=== PATIENT | female | born 1945 | race Two or more races ===

== ENCOUNTER → 2016-06-22 | Day surgery (SDC) | payer MEDICARE, OTHER ==
--- NOTE | 2016-06-21 20:57 | Pre-op HX & Phy Repo 2 SIG ---
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 BRIEF NOTE: This is the first [facility] admission for this patient who is a very nice 70-year-old lady who underwent initially surgery to repair a macular hole in February. Things went well with what appeared to be closure of the hole, but subsequent to this, she developed a cataract with what appeared to be dislocation of the nuclear material through a posterior capsular opening. She has had issues with pressure and an ultrasound was suspected of having a total retinal detachment. She is admitted for repair. PAST OCULAR HISTORY: Otherwise benign. The right eye has never had surgery. PAST MEDICAL HISTORY: Benign as well. She has on multiple topical medications as well as Diamox for elevated pressure. ALLERGIES: She has no known allergies. PHYSICAL EXAMINATION: Best vision at the time of admission was 20/25 in the right eye and light perception with projection in the left. Pressures were 14 and 34. The anterior segment of the right was benign with only mild nuclear sclerosis. On the left, there was trace flare in the anterior chamber. A mild pterygium was seen nasally. Significant cortical remnants were seen in the place of the lens with an intact anterior capsule, but iridodonesis suggestive of loss of the bulk of the lens material. Posterior segment could only vaguely be seen. An ultrasound done on the left eye showed a large portion of the lens nucleus dislocated inferiorly. There was what appeared to be a posterior vitreous detachment with thickened posterior hyaloid, but none of this extended to the optic nerve. There was a question of whether the retina was attached or not. General physical examination will be done by Dr. Prabhakar. ASSESSMENT: Possible total retinal detachment, left eye with dislocated lens and secondary glaucoma. PLAN: The plan is to perform pars plana vitrectomy with placement of an anterior chamber lens. The lens fragments will be moved from posteriorly and retinal detachment will be repaired either with gas or silicone oil if found. The risks and benefits of surgery gone over with the patient with potential infection, hemorrhage, inability to repair the retina, pain and discomfort, and remote possibility of loss of the eye. The risk of anesthesia was also discussed. This the patient understands and consents to the surgery, which will be performed on tomorrow morning. Desmond Hart M.D. DR: LORE JOB#: [id number] CC:
[~2016-06-22] VITALS: Ht 154.9 cm; Wt 57.6 kg
[2016-06-22] VITALS (9 sets, daily range): BP systolic 143–181; BP diastolic 59–82
[~2016-06-22] MED LIST: ACETAZOLAMIDE250 MG ORAL; Acetylcholine Injection (OR) ONE; Atropine Sulfate 3.5gm Oint ONE; BSS 15ml BTL ONE; BSS 500ml btl ONE; Bupivacaine 0.75% 30ml vial INJ ONE; CALCIUM + D3 E1 EACH PO; Carbachol 0.01% Op Soln 1.5ml vial ONE; Dexamethasone 4mg/ml vial ONE; DiphenhydrAMINE 50mg/ml Inj IVP PRN; DiphenhydrAMINE 50mg/ml Inj ONE; EPINEPHrine 1mg/1ml Amp ONE; FOSAMAX70 MG ORAL; Kenalog-10 5ml Inj ONE; Kenalog-40 1ml Vial ONE; LR 1000ml 1,000 ML IVLG SCH; LR 1000ml ONE; Labetalol 5mg/ml 20ml vial IV PRN; Lidocaine 1% MPF 10mg/ml 5ml ONE; Lidocaine 2% MPF 5ml Vial INJ ONE; Maxitrol Opth Oint 3.5gm ONE; Midazolam 2mg/2ml Inj ONE; NS Irrig 1000ml ONE; Norco 5mg/325mg tab ORAL PRN; Povidone-Iodine 5% opth solution ONE; Pred Forte 1% Opth Susp 1ml LEFT EYE ONE; Propofol 10mg/ml 20ml IV ONE; SIMVASTATIN40 MG ORAL; Sodium Hyaluronate 10 mg/ml 0.85ml ONE; Sterile Water Irrig 1000ml IRRIG ONE; Tetracaine 0.5% Opth Soln ONE; fentaNYL 100 mcg/2 mL IV ONE
[2016-06-22] MEDS: Flurbiprofen 0.03% Opth Sol 2.5ml LEFT EYE SCH ×3 (08:32→08:51)
[2016-06-22] MEDS: Gatifloxacin Opth Solution 0.5% LEFT EYE SCH ×3 (08:32→08:51)
[2016-06-22] MEDS: Phenylephrine 2.5% Op Soln LEFT EYE SCH ×3 (08:33→08:51)
[2016-06-22] MEDS: Cyclopentolate 1% Opth Sol LEFT EYE SCH ×3 (08:33→08:51)
--- NOTE | 2016-06-22 08:36 | Pre-Procedure Note/Attestation ---
Pre-Procedure Note/Attestation Complete Prior to Procedure Planned Procedure: left Procedure Narrative: PPV, removal of dislocated lens, repair of retinal detachment, insertion of IOL L eye Indications for Procedure Pre-Operative Diagnosis: Dislocated crystalline lens, phacolytic glaucoma, possible total RD OS Attestation I attest that I discussed the nature of the procedure; its benefits; risks and complications; and alternatives (and the risks and benefits of such alternatives ), prior to the procedure, with the patient (or the patient's legal community service representative). I attest that, if there was a reasonable possibility of needing a blood transfusion, the patient (or the patient's legal community service representative) was given the [place] Department of Health Services standardized written summary, pursuant to the Rehan Walker Blood Safety Act ([place] Health and Safety Code # 1645, as amended). I attest that I re-evaluated the patient just prior to the surgery and that there has been no change in the patient's H&P, except as documented below: ASHLEE GUIDRY Jun 22, 2016 08:36
[2016-06-22 08:38] LABS: MEAN CORPUSCULAR HEMOGLOBIN 33.8 PG (27.0-31.0); MEAN CORPUSCULAR HGB CONC 35.4 G/DL (32.0-36.0); MEAN CORPUSCULAR VOLUME 96 FL (80-99); RED BLOOD COUNT 4.06 M/UL (4.20-5.40); RED CELL DISTRIBUTION WIDTH 11.7 % (11.6-14.8); WHITE BLOOD COUNT 5.1 K/UL (4.8-10.8)
[2016-06-22 08:39] LABS: BASOPHILS % (AUTO) 0.8 % (0.0-2.0); EOSINOPHILS % (AUTO) 2.2 % (0.0-3.0); LYMPHOCYTES % (AUTO) 35.6 % (20.0-45.0); MEAN PLATELET VOLUME 8.2 FL (6.5-10.1); MONOCYTES % (AUTO) 10.6 % (1.0-10.0); NEUTROPHILS % (AUTO) 50.8 % (45.0-75.0); PLATELET COUNT 213 K/UL (150-450)
[2016-06-22 08:47] LABS: ANION GAP 16 (5-15); CARBON DIOXIDE 18 mEQ/L (20-30); CHLORIDE 108 mEQ/L (98-107); CREATININE 0.6 mg/dL (0.5-0.9); HEMOLYSIS 22; POTASSIUM 4.2 mEQ/L (3.4-4.9); SODIUM 142 mEQ/L (135-145)
--- NOTE | 2016-06-22 09:58 | Anethesia Preoperative Eval ---
Anesthesia Pre-op PMH/ROS General Date of Evaluation: Jun 22, 2016 Anesthesiologist: Mt ASA Score: ASA 2 Mallampati Score Class I : Soft palate, uvula, fauces, pillars visible Class II: Soft palate, uvula, fauces visible Class III: Soft palate, base of uvula visible Class IV: Only hard plate visible Mallampati Classification: Class II Surgeon: Hailey Diagnosis: Retained lens fragments left eye Surgical Procedure: Left eye vitrectomy Anesthesia History: none Family History: no anesthesia problems Allergies: Coded Allergies: MUSHROOM (Verified Adverse Reaction, Severe, N/V, 06/21/16) Medications: see eMAR Past Medical History Cardiovascular: Reports: HTN, Denies: CAD, [place], arrhythmia, other, valve dz Pulmonary: Reports: asthma, Denies: COPD, ANDREEA, other Gastrointestinal/Genitourinary: Denies: CRI, ESRD, GERD, other Neurologic/Psychiatric: Denies: CVA, TIA, dementia, depression/anxiety, other Endocrine: Denies: DM, hypothyroidism, other, steroids HEENT: Denies: [place] (L), [place] (R), cataract (L), cataract (R), glaucoma, other Hematology/Immune: Denies: DVT, anemia, bleeding disorder, other Musculoskeletal/Integumentary: Reports: OA, Denies: DDD, DJD, RA, edema, other PSxH Narrative: left eye vitrectomy, UHR, ANGELA Anesthesia Pre-op Phys. Exam Physician Exam Last Vital Signs Date Time Temp Pulse Resp B/P Pulse Ox O2 Delivery O2 Flow Rate FiO2 06/22/16 09:00 53 18 165/73 100 Room Air 06/22/16 08:39 98.0 Constitutional: NAD Cardiovascular: RRR Respiratory: CTA Airway Exam Mallampati Score: Class II MO: full ROM: full Anesthesia Pre-op A/P Labs Hematology Test 06/22/16 08:15 White Blood Count 5.1 K/UL (4.8-10.8) Red Blood Count 4.06 M/UL (4.20-5.40) L Hemoglobin 13.7 G/DL (12.0-16.0) Hematocrit 38.8 % (37.0-47.0) Mean Corpuscular Volume 96 FL (80-99) Mean Corpuscular Hemoglobin 33.8 PG (27.0-31.0) H Mean Corpuscular Hemoglobin Concent 35.4 G/DL (32.0-36.0) Red Cell Distribution Width 11.7 % (11.6-14.8) Platelet Count 213 K/UL (150-450) Mean Platelet Volume 8.2 FL (6.5-10.1) Neutrophils (%) (Auto) 50.8 % (45.0-75.0) Lymphocytes (%) (Auto) 35.6 % (20.0-45.0) Monocytes (%) (Auto) 10.6 % (1.0-10.0) H Eosinophils (%) (Auto) 2.2 % (0.0-3.0) Basophils (%) (Auto) 0.8 % (0.0-2.0) Chemistry Test 06/22/16 08:15 Sodium Level 142 mEQ/L (135-145) Potassium Level 4.2 mEQ/L (3.4-4.9) Chloride Level 108 mEQ/L (98-107) H Carbon Dioxide Level 18 mEQ/L (20-30) L Anion Gap 16 (5-15) H Blood Urea Nitrogen 19 mg/dL (7-23) Creatinine 0.6 mg/dL (0.5-0.9) Estimat Glomerular Filtration Rate mL/min (>60) Glucose Level 88 mg/dL (74-106) Calcium Level 9.0 mg/dL (8.6-10.2) Studies Pre-op Studies: EKG - sr Risk Assessment & Plan Assessment: ASA II Plan: GA Status Change Before Surgery: No Pre-Antibiotics Drug: N/A ALEXIS PEÑA M.D. Jun 22, 2016 09:58
--- NOTE | 2016-06-22 11:08 | Immediate Post-Op Evaluation ---
Immediate Post-Op Evalulation Immediate Post-Op Evalulation Procedure: Left eye vitrectomy Date of Evaluation: Jun 22, 2016 Time of Evaluation: 13:04 IV Fluids: 700 Blood Products: 0 Estimated Blood Loss: min Urinary Output: 0 Blood Pressure Systolic: 143 Blood Pressure Diastolic: 61 Pulse Rate: 55 Respiratory Rate: 16 O2 Sat by Pulse Oximetry: 100 Temperature (Fahrenheit): 97 Pain Score (1-10): 0 Nausea: No Vomiting: No Complications 0 Patient Status: awake, reacts, patent, none Hydration Status: adequate Drug: N/A ALEXIS PEÑA M.D. Jun 22, 2016 11:08
--- NOTE | 2016-06-22 11:09 | 48 Hour Post Anesthesia Eval ---
Post Anesthesia Evaluation Procedure: Left eye vitrectomy Date of Evaluation: Jun 22, 2016 Blood Pressure Systolic: 142 0: 64 Pulse Rate: 52 Respiratory Rate: 16 O2 Sat by Pulse Oximetry: 100 Airway: patent Nausea: No Vomiting: No Pain Intensity: 0 Hydration Status: adequate Cardiopulmonary Status: at baseline Mental Status/LOC: patient returned to baseline Post-Anesthesia Complications: 0 Follow-up care needed: ready to discharge ALEXIS PEÑA M.D. Jun 22, 2016 11:09
--- NOTE | 2016-06-23 16:52 | Brief Operative Note ---
Immediate Post Operative Note Operative Note Chief Complaint: Blurred vision Pre-op Diagnosis: Dislocated crystalline lens, phacolytic glaucoma, possible total RD OS Procedure: PPV, fragmentation of dislocated lens, Endolaser 2221 spots, placement of AC lens, peripheral iridectomy, gas-fluid exchange L eye Post-op Diagnosis: Retinal detachment, dislocated crystalline lens, phacolytic glaucoma with inflammation L eye Surgeon: gia Anesthesiologist: Alfonso Anesthesia: general Specimen: none Complications: none Condition: stable Estimated Blood Loss: none Drains: none Implant(s) used?: Yes - 16 diopter AC IOL ASHLEE GUIDRY Jun 23, 2016 16:52
--- NOTE | 2016-06-24 00:18 | Operative Note - Dictated ---
DATE OF OPERATION: 06/22/2016 PREOPERATIVE DIAGNOSIS: Dislocated crystalline lens with phacolytic glaucomatous and retinal detachment left eye. PROCEDURES PERFORMED: 1. Pars plana vitrectomy. 2. Fragmentation of dislocated lens. 3. Insertion of anterior chamber lens. 4. Placement of a peripheral iridotomy. 5. Endolaser. 6. Gas fluid exchange, left eye. SURGEON: Desmond Hart M.D. STUDIO HAND: None. ANESTHESIA: LMA, general. ANESTHESIOLOGIST: Eleanor Hamilton M.D. JUSTIFICATION FOR SURGERY: This 70-year-old lady who previously had surgery for a macular hole, developed a retinal detachment, glaucoma, and dislocated lens. BRIEF NOTE: The patient was brought to the operative room, placed on operating room table in supine position. After a time-out was performed and agreed upon by the staff, general LMA anesthesia was induced by Dr. Hamilton. Retrobulbar and Van Lint blocks were then given in the standard way to the left eye. The eye was prepped and draped in normal manner. A lid speculum was inserted to the left eye. A 160 degree superior peritomy was then cut with relaxation incisions at 930 and 230. Using a 23-gauge trocar system, cannulas were placed all except infranasal quadrant. Infusion secured inferotemporally. Vitrectomy was begun posterior to the iris plane. It was noted that the posterior capsule and most of the lens body was missing so cortical debris was removed followed by removal of the anterior capsule. Visualization was much set for now and posteriorly it was found to be a large nucleus surrounded by cortical material, which was lodged just over the optic nerve. In addition, there was a sizable nasal retinal detachment with two small horseshoe tears at the 2 o'clock position and a large horseshoe rip at 3 followed by an additional small tear at 530. These areas were noted. The eye was subjected to a vitrectomy shaving vitreous over the tears and also peripherally leaving a small vitreous skirt. The vitreous that was adherent to the lens was also removed. The superonasal wound was then enlarged to 20-gauge size and the 20-gauge fragmatome was introduced into the eye and the large remnant of lens material fragmented and removed. It was decided at this point to repair the retinal detachment with laser and intraocular gas. Before this was done, it was elected to place the previously selected anterior chamber lens. The wounds were plugged and a groove was made in the posterior surgical limbus going roughly 6.5 mm. Using the keratome, the anterior chamber was entered. The wound was extended with a keratome to either edge. A lens glide was then inserted into the inferior angle and the distance was measured at 11.5 mm. A 12.5 mm 16 diopter anterior chamber lens was chosen and after instilling [place] in the anterior chamber, the lens was inserted properly into the inferior angle and then the lips of the wound were elevated and was placed superiorly. The lens was noted to fixate nicely. A 10-0 nylon sutures, interrupted were then used to close the superior wound. All knots were rotated posteriorly. Using the vitreous cutter, a peripheral iridotomy was made at the 10 o'clock position. Attention was then carried posteriorly where an air-fluid exchange was performed with drainage through the larger posterior break at 9 o'clock. With the retina now sufficiently flatten, endolaser was brought to the eye and a power of 0.3 sibley duration 0.2 seconds. A total of 2221 lesions were applied surrounding the large retinal breaks and going inferiorly where the suspicious areas were noted. A gas exchange was then performed using roughly an 18% mixture of C3F8. With the eye being left roughly 80% fill with gas and 20% fluid to avoid possibility of a wet fold, the instruments were removed and the remaining wounds closed with 8-0 Vicryl suture. Conjunctiva and Tenon's capsule were then pulled up to secure 6-0 plain catgut. Subconjunctival Decadron and gentamicin were then injected and Maxitrol and atropine ointments were instilled. The patient was gently rolled to the face-down position after a smooth recovery from general anesthesia and she was taken to the recovery room in excellent condition. Desmond Hart M.D. DR: RENE JOB#: [id number] CC:
--- NOTE | 2016-06-26 16:34 | Cardiology Report ---
APPROVED REPORT EKG Measurement Heart [id number] Sinus bradycardia Otherwise normal ECG
--- NOTE | 2016-06-28 23:58 | Pre-op HX & Phy Repo 2 SIG ---
DATE OF ADMISSION: 06/22/2016 NOTE: POOR AUDIO PRESURGICAL INTERNAL MEDICINE HISTORY AND PHYSICAL REASON FOR EVALUATION: I was asked by Dr. Desmond Hart to see this 70-year-old, Somali-speaking female, who is going for elective surgery of the left eye. The patient has retained foreign material fragments, left eye. The patient was examined. Chart was reviewed. Information obtained through the daughter by the bedside. PAST MEDICAL HISTORY/REVIEW OF SYSTEMS: Remarkable for osteoporosis and history of shingles. No history of chest pain, palpitation, or heart attack. No diabetes mellitus. No stroke or seizures. The patient . No thyroid problem. No anemia. No renal failure. The patient has a history of glaucoma. PAST SURGICAL HISTORY: Hysterectomy, hernia repair, and also cataract surgery. FAMILY HISTORY: Father . Sister has hypertension. ALLERGIES: CURRENT MEDICATIONS: Include alendronate, calcium, vitamin D supplement, Diamox, Tylenol, and simvastatin. SOCIAL HISTORY: The patient smoked for approximately 20 years and stopped three years ago. Smoked moderately 3-4 cigarettes a day. Alcohol socially. No street drugs. PHYSICAL EXAMINATION: GENERAL: A well-developed, well-nourished female in her 70s. VITAL SIGNS: Blood pressure 181/76, which she had before surgery 161/70, temperature 98 degrees Fahrenheit, pulse 51 per minute, regular O2 saturation 99% on room air. SKIN: Dry and warm. LUNGS: Clear. LYMPH NODES: Not enlarged. HEENT: Head, normocephalic. Ears, clear. Eyes, full description per Dr. Desmond Hart. Mouth, dentures. NECK: Supple. No jugular vein distention. Carotids +2. Trachea midline. CHEST: No deformity or asymmetry. EXTREMITIES: No rales or rhonchi. HEART: Sinus bradycardia. No murmur. No S3 or S4. ABDOMEN: Soft and benign. No rebound. No palpable mass. EXTREMITIES: No edema. No varicose veins. No calf tenderness. GENITOURINARY: No dysuria. CVA nontender. NEUROLOGIC: No tremor. No nystagmus. No asymmetry. LABORATORY AND DIAGNOSTIC DATA: ECG sinus bradycardia 49 per minute. The patient did not eat or drink from last night. Lab work pending. IMPRESSION: 1. Retained foreign material fragment, left eye. 2. Osteoporosis. 3. Hypertension, untreated. 4. Glaucoma. 5. History of herpes zoster. 6. Hyperlipidemia. PLAN: Pars plana vitrectomy with removal of ___ fragment left eye per Dr. Desmond Hart. CONCLUSION: The patient has hypertension evaluated by primary care physician. The patient did not eat or drink from last night. The patient's ECG showed sinus bradycardia of 49, asymptomatic, as outpatient. The patient's condition optimized for surgery. Thank you very much, Dr. Hart, for privilege to participate in the presurgical care of this patient. Smith Prabhakar M.D. DR: REANNA JOB#: [id number] CC:
== END | disposition home or self-care (01) ==
LOC: SUR 07:23
DX: H33.022 Retinal detachment with multiple breaks, left eye (principal); H40.52X0 Glaucoma secondary to other eye disorders, left eye, stage unspecified; H27.132 Posterior dislocation of lens, left eye; H25.22 Age-related cataract, morgagnian type, left eye
CPT/HCPCS: 36415; 66999; 67108; 80048; 85025; 93005; J0171; J1100; J2250; J2704; J3010; J3301; J3470; J3490; J7120; V2632; 94003; 94150

== ENCOUNTER 2016-10-24 05:31 | Day surgery (SDC) | payer MEDICARE, OTHER ==
--- NOTE | 2016-10-21 17:45 | Pre-op HX & Phy Repo 2 SIG ---
DATE OF ADMISSION: 10/24/2016 POSTOPERATIVE DIAGNOSIS: Recurrent retinal detachment, left eye. BRIEF NOTE: This is the second [facility] admission for this patient who is a 71-year-old lady, who has had problems with the left eye. She was treated for a macular hole by another surgeon in late 2015. Subsequent to this, she was found to have a dislocated lens and elevated pressure as well as a retinal detachment. She was admitted to [facility] on 06/22/2016 where a pars plana vitrectomy was performed with fragmentation and removal of the dislocated lens, repair of the retinal detachment, and insertion of an anterior chamber lens. She did well until the late development of fibrosis and traction around the retinal hole, which has reopened slightly with an inferior retinal detachment. She was admitted for repair of this lesion. PAST MEDICAL HISTORY: Benign. She is on multiple topical medications for her eyes. ALLERGIES: She has no known allergies. PHYSICAL EXAMINATION: Best vision at the time of admission was 20/70 in the right eye and 20/200 in the left with pressures of 15 and 14. The anterior segment on the right shows a small pterygium plus 2+ nuclear cataract. On the left, an anterior chamber lens was seen in good position. The pupil is round. Fundus examination of the right eye appears normal. The left eye shows some degree of glaucomatous atrophy. There is a closed macular hole. An open retinal break is seen at the 4 o'clock position with associated traction. The inferior retina is detached, but dramatically remains on. General physical examination will be updated by Dr. Prabhakar. ASSESSMENT: Recurrent retinal detachment, left eye, with preretinal fibrosis. PLAN: The plan is to perform a repeat pars plana vitrectomy with localized scleral buckle on the left eye. Gas-fluid exchange or possibly silicone oil will be injected. The risks and benefits of surgery have been gone over with the patient with the potential for infection, hemorrhage, glaucoma, recurrent detachment, and the possibility of loss of the eye. The risk of anesthesia was discussed. The patient understands and consents to the surgery, which will be performed on Monday. Desmond Hart M.D. DR: LORE JOB#: [id number] CC:
[2016-10-24] VITALS (10 sets, daily range): BP systolic 147–189; BP diastolic 66–84
[~2016-10-24] VITALS: Ht 152.4 cm; Wt 57.6 kg
[~2016-10-24 05:31] MED LIST changes: -Acetylcholine Injection (OR) ONE; -Atropine Sulfate 3.5gm Oint ONE; -BSS 15ml BTL ONE; -BSS 500ml btl ONE; -Bupivacaine 0.75% 30ml vial INJ ONE; -Carbachol 0.01% Op Soln 1.5ml vial ONE; -Dexamethasone 4mg/ml vial ONE; -DiphenhydrAMINE 50mg/ml Inj IVP PRN; -DiphenhydrAMINE 50mg/ml Inj ONE; -EPINEPHrine 1mg/1ml Amp ONE; -Kenalog-10 5ml Inj ONE; -Kenalog-40 1ml Vial ONE; -LR 1000ml 1,000 ML IVLG SCH; -LR 1000ml ONE; -Labetalol 5mg/ml 20ml vial IV PRN; -Lidocaine 1% MPF 10mg/ml 5ml ONE; -Lidocaine 2% MPF 5ml Vial INJ ONE; -Maxitrol Opth Oint 3.5gm ONE; -Midazolam 2mg/2ml Inj ONE; -NS Irrig 1000ml ONE; -Norco 5mg/325mg tab ORAL PRN; -Povidone-Iodine 5% opth solution ONE; -Pred Forte 1% Opth Susp 1ml LEFT EYE ONE; -Propofol 10mg/ml 20ml IV ONE; -Sodium Hyaluronate 10 mg/ml 0.85ml ONE; -Sterile Water Irrig 1000ml IRRIG ONE; -Tetracaine 0.5% Opth Soln ONE; -fentaNYL 100 mcg/2 mL IV ONE
[2016-10-24] MEDS ORDERED: Flurbiprofen 0.03% Opth Sol 2.5ml ONE (05:33)
[2016-10-24] MEDS ORDERED: Phenylephrine 2.5% Op Soln ONE (05:33)
[2016-10-24] MEDS ORDERED: Gatifloxacin Opth Solution 0.5% ONE (05:33)
[2016-10-24] MEDS ORDERED: Cyclopentolate 1% Opth Sol ONE (05:33)
[2016-10-24] MEDS ORDERED: Pred Forte 1% Opth Susp 1ml LEFT EYE ONE (06:00)
[2016-10-24] MEDS: Cyclopentolate 1% Opth Sol LEFT EYE SCH ×3 (06:07→06:30)
[2016-10-24] MEDS: Gatifloxacin Opth Solution 0.5% LEFT EYE SCH ×3 (06:08→06:29)
[2016-10-24] MEDS: Phenylephrine 2.5% Op Soln LEFT EYE SCH ×3 (06:08→06:30)
[2016-10-24] MEDS: Flurbiprofen 0.03% Opth Sol 2.5ml LEFT EYE SCH ×3 (06:08→06:29)
[2016-10-24 06:11] LABS: BASOPHILS % (AUTO) 0.9 % (0.0-2.0); LYMPHOCYTES % (AUTO) 36.9 % (20.0-45.0); MEAN CORPUSCULAR HEMOGLOBIN 33.4 PG (27.0-31.0); MEAN CORPUSCULAR VOLUME 96 FL (80-99); MEAN PLATELET VOLUME 8.9 FL (6.5-10.1); MONOCYTES % (AUTO) 10.4 % (1.0-10.0); NEUTROPHILS % (AUTO) 48.9 % (45.0-75.0); PLATELET COUNT 187 K/UL (150-450); RED BLOOD COUNT 4.19 M/UL (4.20-5.40); RED CELL DISTRIBUTION WIDTH 11.5 % (11.6-14.8)
[2016-10-24 06:22] LABS: ANION GAP 17 (5-15); CALCIUM 9.1 mg/dL (8.6-10.2); CARBON DIOXIDE 22 mEQ/L (20-30); CHLORIDE 102 mEQ/L (98-107); CREATININE 0.7 mg/dL (0.5-0.9); HEMOLYSIS 169; POTASSIUM 5.1 mEQ/L (3.4-4.9); SODIUM 141 mEQ/L (135-145)
--- NOTE | 2016-10-24 06:26 | Pre-Procedure Note/Attestation ---
Pre-Procedure Note/Attestation Complete Prior to Procedure Planned Procedure: left Procedure Narrative: PPV, membrane peel, scleral buckle, endolaser, gas fluid exchange, possible silicone oil injection L eye Indications for Procedure Pre-Operative Diagnosis: Recurrent retinal detachment L eye Attestation I attest that I discussed the nature of the procedure; its benefits; risks and complications; and alternatives (and the risks and benefits of such alternatives ), prior to the procedure, with the patient (or the patient's legal field representative/health education). I attest that, if there was a reasonable possibility of needing a blood transfusion, the patient (or the patient's legal field representative/health education) was given the [place] Department of Health Services standardized written summary, pursuant to the Rehan Walker Blood Safety Act ([place] Health and Safety Code # 1645, as amended). I attest that I re-evaluated the patient just prior to the surgery and that there has been no change in the patient's H&P, except as documented below: ASHLEE GUIDRY Oct 24, 2016 06:26
[2016-10-24] MEDS ORDERED: Norco 5mg/325mg tab ORAL PRN (06:30)
[2016-10-24] MEDS ORDERED: FISH OIL300 M1 PO (06:48)
[2016-10-24] MEDS ORDERED: BSS 500ml btl ONE (06:55)
[2016-10-24] MEDS ORDERED: Dexamethasone 4mg/ml vial ONE ×3 (06:56→07:30)
[2016-10-24] MEDS ORDERED: Kenalog-40 1ml Vial ONE (06:56)
[2016-10-24] MEDS ORDERED: Maxitrol Opth Oint 3.5gm ONE (06:56)
[2016-10-24] MEDS ORDERED: Tetracaine 0.5% Opth Soln ONE (06:56)
[2016-10-24] MEDS ORDERED: EPINEPHrine 1mg/1ml Amp ONE (06:57)
[2016-10-24] MEDS ORDERED: Lidocaine 2% MPF 5ml Vial INJ ONE (06:57)
[2016-10-24] MEDS ORDERED: Povidone-Iodine 5% opth solution ONE (06:57)
[2016-10-24] MEDS ORDERED: Kenalog-10 5ml Inj ONE (06:57)
[2016-10-24] MEDS ORDERED: Bupivacaine 0.75% 30ml vial INJ ONE (06:58)
[2016-10-24] MEDS ORDERED: Triamcinolone 40mg/ml PF Vial ONE (06:58)
[2016-10-24] MEDS ORDERED: BSS 15ml BTL ONE ×2 (06:58→09:01)
[2016-10-24] MEDS ORDERED: Sodium Hyaluronate 10 mg/ml 0.85ml ONE (06:58)
[2016-10-24] MEDS ORDERED: NS Irrig 1000ml ONE (07:30)
[2016-10-24] MEDS ORDERED: fentaNYL 100 mcg/2 mL IV ONE ×2 (07:30)
[2016-10-24] MEDS ORDERED: Lidocaine 1% MPF 10mg/ml 5ml ONE ×2 (07:30)
[2016-10-24] MEDS ORDERED: Sterile Water Irrig 1000ml IRRIG ONE (07:30)
[2016-10-24] MEDS ORDERED: Propofol 10mg/ml 20ml IV ONE ×2 (07:30)
[2016-10-24] MEDS ORDERED: LR 1000ml 1,000 ML IVLG SCH (08:05)
--- NOTE | 2016-10-24 08:05 | Anethesia Preoperative Eval ---
Anesthesia Pre-op PMH/ROS General Date of Evaluation: Oct 24, 2016 Anesthesiologist: Mt ASA Score: ASA 2 Mallampati Score Class I : Soft palate, uvula, fauces, pillars visible Class II: Soft palate, uvula, fauces visible Class III: Soft palate, base of uvula visible Class IV: Only hard plate visible Mallampati Classification: Class II Surgeon: Hailey Diagnosis: Recurrent left retinal detachment Surgical Procedure: Left eye vitrectomy and scleral buckle Anesthesia History: none Family History: no anesthesia problems Allergies: Coded Allergies: MUSHROOM (Verified Adverse Reaction, Severe, N/V, 06/21/16) Medications: see eMAR Past Medical History Cardiovascular: Reports: HTN, other - HLD, Denies: CAD, [place], arrhythmia, valve dz Pulmonary: Denies: COPD, ANDREEA, asthma, other Gastrointestinal/Genitourinary: Denies: CRI, ESRD, GERD, other Neurologic/Psychiatric: Denies: CVA, TIA, dementia, depression/anxiety, other Endocrine: Denies: DM, hypothyroidism, other, steroids HEENT: Denies: [place] (L), [place] (R), cataract (L), cataract (R), glaucoma, other Hematology/Immune: Denies: DVT, anemia, bleeding disorder, other Musculoskeletal/Integumentary: Denies: DDD, DJD, OA, RA, edema, other PSxH Narrative: Hysterectomy, multiple left eye sx Anesthesia Pre-op Phys. Exam Physician Exam Last Vital Signs Date Time Temp Pulse Resp B/P Pulse Ox O2 Delivery O2 Flow Rate FiO2 10/24/16 06:10 97.9 54 18 189/82 99 Room Air Constitutional: NAD Cardiovascular: RRR Respiratory: CTA Airway Exam Mallampati Score: Class II MO: limited ROM: full Teeth: missing, intact Anesthesia Pre-op A/P Labs Hematology Test 10/24/16 06:00 White Blood Count 6.0 K/UL (4.8-10.8) Red Blood Count 4.19 M/UL (4.20-5.40) L Hemoglobin 14.0 G/DL (12.0-16.0) Hematocrit 40.1 % (37.0-47.0) Mean Corpuscular Volume 96 FL (80-99) Mean Corpuscular Hemoglobin 33.4 PG (27.0-31.0) H Mean Corpuscular Hemoglobin Concent 35.0 G/DL (32.0-36.0) Red Cell Distribution Width 11.5 % (11.6-14.8) L Platelet Count 187 K/UL (150-450) Mean Platelet Volume 8.9 FL (6.5-10.1) Neutrophils (%) (Auto) 48.9 % (45.0-75.0) Lymphocytes (%) (Auto) 36.9 % (20.0-45.0) Monocytes (%) (Auto) 10.4 % (1.0-10.0) H Eosinophils (%) (Auto) 3.0 % (0.0-3.0) Basophils (%) (Auto) 0.9 % (0.0-2.0) Chemistry Test 10/24/16 06:00 Sodium Level 141 mEQ/L (135-145) Potassium Level 5.1 mEQ/L (3.4-4.9) H Chloride Level 102 mEQ/L (98-107) Carbon Dioxide Level 22 mEQ/L (20-30) Anion Gap 17 (5-15) H Blood Urea Nitrogen 15 mg/dL (7-23) Creatinine 0.7 mg/dL (0.5-0.9) Estimat Glomerular Filtration Rate mL/min (>60) Glucose Level 102 mg/dL (74-106) Calcium Level 9.1 mg/dL (8.6-10.2) Studies Pre-op Studies: EKG - sb Risk Assessment & Plan Assessment: ASA II Plan: GA Status Change Before Surgery: No Pre-Antibiotics Drug: N/A ALEXIS PEÑA M.D. Oct 24, 2016 08:05
[2016-10-24] MEDS ORDERED: Neosporin Oph Soln 5ml Btl ONE (08:11)
[2016-10-24] MEDS ORDERED: DiphenhydrAMINE 50mg/ml Inj IVP PRN (08:15)
[2016-10-24] MEDS ORDERED: Metoclopramide 10mg/2ml Inj IVP PRN (08:15)
[2016-10-24] MEDS ORDERED: fentaNYL 100 mcg/2 mL IV PRN (08:15)
--- NOTE | 2016-10-24 10:16 | Immediate Post-Op Evaluation ---
Immediate Post-Op Evalulation Immediate Post-Op Evalulation Procedure: Left eye vitrectomy and scleral buckle Date of Evaluation: Oct 24, 2016 Time of Evaluation: 10:16 IV Fluids: 600 Blood Products: 0 Estimated Blood Loss: min Urinary Output: 0 Blood Pressure Systolic: 148 Blood Pressure Diastolic: 66 Pulse Rate: 57 Respiratory Rate: 16 O2 Sat by Pulse Oximetry: 100 Temperature (Fahrenheit): 97 Pain Score (1-10): 0 Nausea: No Vomiting: No Complications 0 Patient Status: awake, reacts, patent, none Hydration Status: adequate Drug: N/a ALEXIS PEÑA M.D. Oct 24, 2016 10:16
--- NOTE | 2016-10-24 10:20 | Brief Operative Note ---
Immediate Post Operative Note Operative Note Chief Complaint: Shadow in vision L eye Pre-op Diagnosis: Recurrent retinal detachment L eye Procedure: PPV, scleral buckle (240. 287. and 70), Endolaser 1009 spots, posterior retinotomy, inferior iridotomy, silicone oil injection L eye. Post-op Diagnosis: same as pre-op Surgeon: gia Anesthesiologist: anika Anesthesia: general Specimen: none Complications: none Condition: stable Estimated Blood Loss: none Drains: none Implant(s) used?: Yes - 240 band, 287 tire, 70 sleeve......1000 [place] silicone oil ASHLEE GUIDRY Oct 24, 2016 10:20
--- NOTE | 2016-10-24 22:15 | Operative Note - Dictated ---
DATE OF OPERATION: 10/24/2016 PREOPERATIVE DIAGNOSIS: Recurrent retinal detachment, left eye. POSTOPERATIVE DIAGNOSIS: Recurrent retinal detachment, left eye. PROCEDURES PERFORMED: 1. Pars plana vitrectomy. 2. Scleral buckle. 3. Endolaser. 4. Posterior retinotomy. 5. Inferior iridotomy. 6. Silicone oil fill, left eye. SURGEON: Desmond Hart M.D. LOGGING SUPERVISOR: None. ANESTHESIA: LMA general. ANESTHESIOLOGIST: Dr. Hamilton. JUSTIFICATION FOR SURGERY: This 71-year-old lady underwent macular hole surgery late last year which was complicated by dislocation of the lens and the vitreous hemorrhage. She underwent a vitrectomy in June which involved placing an anterior chamber lens and removing the fragment of lens material as well as treating a small inferior retinal detachment. In the last month, she developed traction which elevated the previous holes and is readmitted for definitive repair. BRIEF NOTE: The patient was brought to the operating room, placed on OR table in supine position. After a time-out was performed and agreed upon by the staff, general LMA anesthesia was induced by Dr. Hamilton. Retrobulbar and Van Lint blocks were given in the standard way to limit the need for postoperative anesthetic. She was then prepped and draped in the normal manner. A lid speculum inserted into the left eye. A 360-degree peritomy was then cut with relaxation incisions at 3 and 9 o'clock positions. The muscles were then isolated and turn on white and black ties. The quadrants were explored and found to be without scleral thinning. Because an inferior detachment had been noted with a open break at the 4:30 position below the horizontal meridian it was elected to place a scleral buckle. Sutures using 5-0 nylon in a mattress fashion were placed in all 4 quadrants with the inferior quadrants having the sutures placed 7 mm apart and superiorly 3 mm. A 240 band was selected and brought around the eye and secured with a 70 sleeve in the supranasal quadrant. A segment of 287 tire was then chosen to accommodate the inferior detachment. This was placed beneath the inferior mattress sutures and beneath the inferior rectus muscle. The knots were then tied and rotated posteriorly with the buckle being loosely drawn up. Preparation was then made for a vitrectomy. Using a 23-gauge trocar system, cannulas were placed in all except infranasal quadrant. Infusion secured inferotemporally. Vitrectomy was begun by removing some degree of peripheral vitreous skirt leaving the smaller. The retina was noted to be essentially mobile. Forceps were used to remove a small amount of preretinal tissue inferonasally. When this was accomplished, it was elected to place a posterior retinotomy for drainage. A site was selected just roughly one disc diameter from the optic nerve slightly inferior and nasally and the cautery was placed here as well as marking the break at the 4:30 position. Through the posterior retinotomy, fluid was drained as an air-fluid exchange was performed totally flattening the retina on the buckle. With the retina now flat the Endolaser was brought into the eye and a power of 0.3 sibley duration 0.2 seconds, a total of 1009 lesions were applied to surround the retinal break with at least 4 rows of laser and also to surround the posterior retinotomy. Additional laser armando were placed on the crest of the buckle inferiorly. A total of 1009 lesions were applied. At this juncture, the vitrector was used to cut an inferior iridotomy at the 6 o'clock position to allow for circulation of fluid behind the silicone oil. At this point, the silicone oil fill was achieved while evacuating air from just posterior to the lens implant. The eye was filled up to the plane of the iris and the pressure left low. Once the oil had been placed, the two superior cannulas were removed and each sclerotomy was closed with 8-0 Vicryl suture. The infusion cannula was also removed and suture of 8-0 Vicryl placed. The ends of the buckle were drawn slightly to leave a moderate buckling affect and edges were trimmed. All knots were rotated posteriorly. Conjunctiva and Tenon's capsule were pulled up and secured with 6-0 plain catgut, interrupted at 6, 3, and 9. Subconjunctival Decadron and gentamicin were injected inferiorly and prednisolone, atropine, and gatifloxacin drops were instilled. Maxitrol ointment was then instilled and the eye was patched and shielded. The patient was extubated smoothly and taken to recovery in excellent condition. There were no complications. Desmond Hart, M.D. DR: Ralph JOB#: [id number] CC: Desmond Hart M.D.; Fax#: [phone]
--- NOTE | 2016-10-25 07:25 | Cardiology Report ---
APPROVED REPORT EKG Measurement Heart [id number] NM [id number] Sinus bradycardia Otherwise normal ECG
== END 2016-10-24 13:30 | disposition home or self-care (01) ==
LOC: SUR 05:31
DX: H33.012 Retinal detachment with single break, left eye (principal); I10 Essential (primary) hypertension; E78.5 Hyperlipidemia, unspecified; J45.909 Unspecified asthma, uncomplicated; R00.1 Bradycardia, unspecified; Z91.018 Allergy to other foods; Z90.710 Acquired absence of both cervix and uterus
CPT/HCPCS: 36415; 67108; 80048; 85025; 93005; J0171; J1100; J2405; J2704; J3010; J3301; J3470; J3490; 94003; 94150; J3300

== ENCOUNTER 2017-05-08 06:01 | Day surgery (SDC) | payer MEDICARE, OTHER ==
--- NOTE | 2017-05-04 21:16 | Pre-op HX & Phy Repo 2 SIG ---
DATE OF ADMISSION: 05/08/2017 DATE OF SURGERY: 05/08/2017. PREOPERATIVE DIAGNOSIS: Retained silicone oil, left eye, status post vitrectomy. BRIEF NOTE: This is one of several admissions for this patient, who is a very nice 71-year-old lady with a history of retinal issues in the left eye. She previously developed a retinal detachment on that side, which has been repaired, but complicated by development of PDR and recurrent elevation of the retina. She has had two prior procedures, but with the last procedure has developed flattening of the retina behind the silicone oil and was admitted for oil removal. PAST MEDICAL HISTORY: Remarkable for osteoporosis. She takes alendronate for this. She is on topical medications for inflammation and elevated pressure in the left eye. OCULAR EXAMINATION: Best vision at the time of the visit was 20/40 in the right eye and counting fingers in the left with pressures of 24 and 26, subsequently treated. The anterior segment on the right was quiet with a moderate nuclear cataract. The left showed an anterior chamber lens. The anterior segment was otherwise quiet with all wounds closed. 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 On the left, there was a 0.6 cup. The scleral buckle was seen with an 85% silicone oil filled. The area of retinal elevation inferotemporally was well surrounded by laser and attached. General physical examination was done by the patient's general physician. ASSESSMENT: Retained silicone oil, left eye. PLAN: The plan is to perform a pars plana vitrectomy with silicone oil removal and additional laser as needed. The risks and benefits of surgery have been gone over with the patient including potential for infection, hemorrhage, glaucoma, remote possibility of loss of the eye, or recurrent detachment. The risk of anesthesia was discussed. The patient understands and consents to the surgery, which will be performed on Monday. Desmond Hart M.D. DR: GAETANO JOB#: [id number] CC:
[2017-05-08] VITALS (11 sets, daily range): BP systolic 110–126; BP diastolic 44–70
[~2017-05-08] VITALS: Ht 152.4 cm; Wt 56.7 kg
[~2017-05-08 06:01] MED LIST changes: +Cyclopentolate 1% Opth Sol 2ml ONE; +FISH OIL300 M1 PO; +Flurbiprofen 0.03% Opth Sol 2.5ml ONE; +Phenylephrine 2.5% Op 2ml Soln ONE; +Pred Forte 1% Opth Susp 1ml LEFT EYE SCH; +Vigamox Opth Soln 3ml ONE; +[UNRECOGNIZED DRUG - OTHER] PO
--- NOTE | 2017-05-08 06:23 | Pre-Procedure Note/Attestation ---
Pre-Procedure Note/Attestation Complete Prior to Procedure Planned Procedure: left Procedure Narrative: PPV, oil removal, endolaser Left eye Indications for Procedure Pre-Operative Diagnosis: Retained silicone oil left eye Attestation I attest that I discussed the nature of the procedure; its benefits; risks and complications; and alternatives (and the risks and benefits of such alternatives ), prior to the procedure, with the patient (or the patient's legal telemarketing sales representative). I attest that, if there was a reasonable possibility of needing a blood transfusion, the patient (or the patient's legal telemarketing sales representative) was given the [facility] standardized written summary, pursuant to the Rehan Wyano Blood Safety Act ([place] Health and Safety Code # 1645, as amended). I attest that I re-evaluated the patient just prior to the surgery and that there has been no change in the patient's H&P, except as documented below: ASHLEE GUIDRY May 08, 2017 06:23
[2017-05-08] MEDS: Phenylephrine 2.5% Op 2ml Soln LEFT EYE SCH ×3 (06:49→07:08)
[2017-05-08] MEDS: Cyclopentolate 1% Opth Sol 2ml LEFT EYE SCH ×3 (06:49→07:07)
[2017-05-08] MEDS: Vigamox Opth Soln 3ml LEFT EYE SCH ×3 (06:49→07:07)
[2017-05-08] MEDS: Flurbiprofen 0.03% Opth Sol 2.5ml LEFT EYE SCH ×3 (06:50→07:07)
[2017-05-08] MEDS ORDERED: BSS 500ml btl ONE (07:10)
[2017-05-08] MEDS ORDERED: Kenalog-40 1ml Vial ONE (07:10)
[2017-05-08] MEDS ORDERED: Kenalog-10 5ml Inj ONE (07:11)
[2017-05-08] MEDS ORDERED: Povidone-Iodine 5% opth solution ONE (07:11)
[2017-05-08] MEDS ORDERED: Dexamethasone 4mg/ml vial ONE (07:11)
[2017-05-08] MEDS ORDERED: Tetracaine 0.5% Opth 4ml Soln ONE (07:11)
[2017-05-08] MEDS ORDERED: Maxitrol Opth Oint 3.5gm ONE (07:11)
[2017-05-08] MEDS ORDERED: BSS 15ml BTL ONE (07:12)
[2017-05-08] MEDS ORDERED: EPINEPHrine 1mg/1ml Amp ONE (07:12)
[2017-05-08] MEDS ORDERED: Bupivacaine 0.75% 30ml vial INJ ONE (07:12)
[2017-05-08] MEDS ORDERED: Sodium Hyaluronate 10 mg/ml 0.85ml ONE (07:12)
[2017-05-08] MEDS ORDERED: Lidocaine 2% MPF 5ml Vial INJ ONE (07:12)
--- NOTE | 2017-05-08 07:21 | Anethesia Preoperative Eval ---
Anesthesia Pre-op PMH/ROS General Date of Evaluation: May 08, 2017 Anesthesiologist: Mt ASA Score: ASA 2 Mallampati Score Class I : Soft palate, uvula, fauces, pillars visible Class II: Soft palate, uvula, fauces visible Class III: Soft palate, base of uvula visible Class IV: Only hard plate visible Mallampati Classification: Class II Surgeon: Hailey Diagnosis: Left eye retinal detachment Surgical Procedure: Left eye vitrectomy Anesthesia History: none Family History: no anesthesia problems Allergies: Coded Allergies: MUSHROOM (Verified Adverse Reaction, Severe, N/V, 06/21/16) Medications: see eMAR Past Medical History Cardiovascular: Reports: HTN, other - HLD, Denies: CAD, GA, valve dz, arrhythmia Pulmonary: Denies: asthma, COPD, ANDREEA, other Gastrointestinal/Genitourinary: Denies: GERD, CRI, ESRD, other Neurologic/Psychiatric: Denies: dementia, CVA, depression/anxiety, TIA, other Endocrine: Denies: DM, hypothyroidism, steroids, other HEENT: Denies: cataract (L), cataract (R), glaucoma, OMAHA (L), OMAHA (R), other Hematology/Immune: Denies: anemia, DVT, bleeding disorder, other Musculoskeletal/Integumentary: Denies: OA, RA, DJD, DDD, edema, other PSxH Narrative: hysterectomy, uhr, left eye vitrectomy Anesthesia Pre-op Phys. Exam Physician Exam Last Vital Signs Date Time Temp Pulse Resp B/P (MAP) Pulse Ox O2 Delivery O2 Flow Rate FiO2 05/08/17 07:15 97.2 45 18 110/56 99 Room Air Constitutional: NAD Cardiovascular: RRR Respiratory: CTA Airway Exam Mallampati Score: Class II MO: full ROM: full Teeth: missing, intact Anesthesia Pre-op A/P Labs see chart Studies Pre-op Studies: EKG - sb Risk Assessment & Plan Assessment: ASA II Plan: MAC Status Change Before Surgery: No Pre-Antibiotics Drug: N/A ALEXIS PEÑA M.D. May 08, 2017 07:21
[2017-05-08] MEDS ORDERED: NS Irrig 1000ml ONE (07:30)
[2017-05-08] MEDS ORDERED: Ketorolac 30mg Inj IV ONE (07:30)
[2017-05-08] MEDS ORDERED: LR 1000ml ONE (07:30)
[2017-05-08] MEDS ORDERED: Midazolam 2mg/2ml Inj ONE (07:30)
[2017-05-08] MEDS ORDERED: Lidocaine 1% MPF 10mg/ml 5ml ONE (07:30)
[2017-05-08] MEDS ORDERED: Sterile Water Irrig 1000ml IRRIG ONE (07:30)
[2017-05-08] MEDS ORDERED: Propofol 200mg/20ml IV ONE (07:30)
[2017-05-08] MEDS ORDERED: Indocyanine Green 25mg Inj INJ ONE (07:45)
[2017-05-08] MEDS ORDERED: LR 1000ml 1,000 ML IVLG SCH (07:59)
[2017-05-08] MEDS ORDERED: DiphenhydrAMINE 50mg/ml Inj IVP PRN (08:00)
--- NOTE | 2017-05-08 08:00 | Immediate Post-Op Evaluation ---
Immediate Post-Op Evalulation Immediate Post-Op Evalulation Procedure: Left eye vitrectomy Date of Evaluation: May 08, 2017 Time of Evaluation: 09:00 IV Fluids: 500 Blood Products: 0 Estimated Blood Loss: min Urinary Output: 0 Blood Pressure Systolic: 126 Blood Pressure Diastolic: 63 Pulse Rate: 43 Respiratory Rate: 16 O2 Sat by Pulse Oximetry: 98 Temperature (Fahrenheit): 97 Pain Score (1-10): 0 Nausea: No Vomiting: No Complications 0 Patient Status: awake, reacts, patent, none Hydration Status: adequate Drug: N/A ALEXIS PEÑA M.D. May 08, 2017 08:00
--- NOTE | 2017-05-08 08:00 | 48 Hour Post Anesthesia Eval ---
Post Anesthesia Evaluation Procedure: Left eye vitrectomy Date of Evaluation: May 08, 2017 Airway: patent Nausea: No Vomiting: No Pain Intensity: 0 Hydration Status: adequate Cardiopulmonary Status: at baseline Mental Status/LOC: patient returned to baseline Post-Anesthesia Complications: 0 Follow-up care needed: ready to discharge ALEXIS PEÑA M.D. May 08, 2017 08:00
--- NOTE | 2017-05-08 09:06 | Brief Operative Note ---
Immediate Post Operative Note Operative Note Chief Complaint: Vision out of focus, distorted Pre-op Diagnosis: Retained silicone oil left eye Procedure: PPV, ICG assisted peel, silicone oil removal, paracentesis, endolaser 227 spots , Kenaolog injection, air-fluid exchange, L eye Post-op Diagnosis: same as pre-op Surgeon: gia Anesthesiologist: anika Anesthesia: MAC Specimen: none Complications: none Condition: stable Fluids: none Estimated Blood Loss: none Drains: none Implant(s) used?: No ASHLEE GUIDRY May 08, 2017 09:06
--- NOTE | 2017-05-08 11:30 | Operative Note - Dictated ---
DATE OF OPERATION: 05/08/2017 PREOPERATIVE DIAGNOSIS: Retained silicone oil, left eye, with macular pucker. POSTOPERATIVE DIAGNOSIS: Retained silicone oil, left eye, with macular pucker. PROCEDURES: 1. Pars plana vitrectomy. 2. Removal of silicone oil. 3. Anterior chamber paracentesis with oil drops and removal. 4. Membrane peel with ICG assist. 5. Endolaser. 6. Air-fluid exchange, left eye. SURGEON: Desmond Hart M.D. GLOBAL MANAGER: None. ANESTHESIA: Local sedation. ANESTHESIOLOGIST: Eleanor Hamilton M.D. JUSTIFICATION FOR SURGERY: This 71-year-old lady with a prior retinal detachment and subsequent recurrent detachment, developed a macular pucker behind silicone oil. She was admitted for removal of the oil and the pucker. BRIEF NOTE: The patient was brought to the operative room and placed on OR table in supine position. After time-out was performed and agreed upon by the staff, initial monitoring secured by Dr. Hamilton, retrobulbar and Van Lint blocks were given in the standard way to the left eye. When the blocks had taken effect, she was prepped and draped in normal manner. A lid speculum was inserted into the left eye. Using a 23-gauge trocar system, cannulas were placed in all except infranasal quadrant. Infusion was secured inferotemporally. Using a silicone oil extraction cannula, silicone oil was removed without incident. A paracentesis was made at the 2 o'clock position and using an angled 27-gauge cannula, oil droplets in the anterior chamber were also removed. Attention was paid posteriorly to the left eye with the retina appeared to be all attached. A posterior-viewing lens was inserted and a fairly thickened epiretinal membrane and distorted ILM were noted. ICG was used to stain the ILM, a single drop was placed. When the ICG was flushed from the eye, intra-ocular forceps were used to gently peel an area roughly 3 disc diameters in size from the macula, which included ILM and overlying membrane. Endolaser was then brought into the eye and a power of 0.3 sibley and duration 0.2 seconds, a total of 227 lesions were applied barricading the area inferotemporally that had developed previously. A small hemorrhage superior and temporal to the macula was also treated with 2-3 spots of laser. Scleral depression was done and no additional pathology was seen. An air-fluid exchange was then performed after Kenalog 10%, 0.5 mL was injected. The instruments were then removed from the eye and each sclerotomy closed with a single suture of 8-0 Vicryl. Subconjunctival Decadron and gentamicin were then injected inferiorly and Maxitrol and atropine ointments were instilled after topical Vigamox and Pred Forte were placed. The eye was then patched and shielded. The patient was taken to recovery in excellent condition to be placed in face-down position. There were no complications. Desmond Hart M.D. DR: Jimmy JOB#: [id number] CC: Desmond Hart M.D.; Fax#: [phone]
[2017-05-08] MEDS ORDERED: Norco 5mg/325mg tab ORAL PRN (14:01)
== END 2017-05-08 10:45 | disposition home or self-care (01) ==
LOC: SUR 06:01
DX: H35.372 Puckering of macula, left eye (principal); I10 Essential (primary) hypertension; E78.5 Hyperlipidemia, unspecified; Z91.018 Allergy to other foods; Z90.710 Acquired absence of both cervix and uterus
CPT/HCPCS: 67015; 67025; 67042; J0171; J1100; J2250; J2704; J3301; J3470; J3490; J7120; 94003; 94150